=== PATIENT | female | born 1990 | race Caucasian/White ===

== ENCOUNTER 2018-10-27 11:05 | Inpatient (IN) | payer BC ==
[~2018-10-27] VITALS: Ht 152.4 cm; Wt 96.6 kg
[2018-10-27] MEDS ORDERED: LR 1,000 ML IV ONE (11:14)
[2018-10-27] MEDS ORDERED: OXYTOCIN/0.9 % SODIUM CHLORIDE 1,000 ML IV SCH (11:14)
[2018-10-27] MEDS ORDERED: NALBUPHINE HCL 10 MG/ML AMP IVP PRN (11:15)
[2018-10-27] MEDS ORDERED: TERBUTALINE SULFATE 1 MG/ML VIAL SUBCUT ONE (11:15)
[2018-10-27 11:44] LABS: BASOPHILS % (AUTO) 0.4 % (0.0-2.0); EOSINOPHILS # (AUTO) 0.1 K/uL (0.0-0.4); EOSINOPHILS % (AUTO) 1.2 % (0.0-4.0); HEMATOCRIT 36.7 % (36-48); HEMOGLOBIN 12.3 g/dL (12.0-16.0); LYMPHOCYTES # (AUTO) 1.6 K/uL (1.0-5.5); LYMPHOCYTES % (AUTO) 16.9 % (20.5-51.5); MEAN CORPUSCULAR HEMOGLOBIN 28 pg (27-31); MEAN CORPUSCULAR HGB CONC 34 % (32-36); MEAN CORPUSCULAR VOLUME 85 fL (79.0-98.0); MONOCYTES # (AUTO) 0.6 K/uL (0.0-1.0); MONOCYTES % (AUTO) 6.2 % (1.7-9.3); NEUTROPHILS # (AUTO) 7.1 K/uL (1.8-7.7); NEUTROPHILS % (AUTO) 75.3 % (40.0-70.0); PLATELET COUNT (AUTO) 194 K/uL (130-430); RED BLOOD CELL COUNT(AUTO) 4.34 MIL/uL (4.2-6.2); RED CELL DISTRIBUTION WIDTH 13.7 % (9.0-15.0); WHITE BLOOD COUNT (AUTO) 9.4 K/uL (4.8-10.8)
[2018-10-27 16:26] VITALS: BP_SYST 129
[2018-10-27] MEDS: LR 1,000 ML IV SCH (19:15)
[2018-10-27] MEDS ORDERED: FENT2mCg/mL-ROPIVA0.2%/NS EPID 150 ML EP SCH (20:00)
[2018-10-27] MEDS ORDERED: ROPIVACAINE HCL/PF 0.2% 100 ML ONE (20:00)
[2018-10-27] MEDS ORDERED: fentaNYL CITRATE/PF 100 MCG/2 ML AMP ONE (20:00)
[2018-10-28] MEDS: LR 1,000 ML IV SCH (00:20)
[2018-10-28] MEDS ORDERED: ROPIVACAINE HCL/PF 0.2% 100 ML ONE ×2 (02:06→10:29)
[2018-10-28] MEDS ORDERED: AMPICILLIN SODIUM 2 GM in NS 100 ML IV ONE (02:45)
[2018-10-28] MEDS ORDERED: CEFAZOLIN 2 GM IVPB PREMIX 50 ML IV ONE (02:45)
[2018-10-28] MEDS ORDERED: CEFAZOLIN 2 GM IVPB PREMIX 0 ML IV ONE (02:48)
[2018-10-28] MEDS ORDERED: AMPICILLIN SODIUM 2 GM VIAL ONE (02:54)
[2018-10-28] MEDS ORDERED: AMPICILLIN SODIUM 1 GM in NS 50 ML IV SCH (03:00)
[2018-10-28] MEDS ORDERED: CEFAZOLIN 1 GM IVPB PREMIX 50 ML IV SCH (03:00)
[2018-10-28] MEDS ORDERED: AMPICILLIN SODIUM 1 GM VIAL ONE (06:29)
[2018-10-28] MEDS ORDERED: ONDANSETRON HCL 4 MG/2 ML VIAL IVP PRN ×2 (06:30→09:45)
[2018-10-28] MEDS ORDERED: ONDANSETRON HCL 4 MG/2 ML VIAL ONE (07:01)
[2018-10-28] MEDS ORDERED: ACETAMINOPHEN 650 MG SUPP.RECT RC PRN (08:45)
[2018-10-28] MEDS ORDERED: NALOXONE HCL 0.4 MG/ML AMP (NARCAN) IVP PRN (09:45)
[2018-10-28] MEDS ORDERED: OXYTOCIN/0.9 % SODIUM CHLORIDE 1,000 ML IV ONE (13:43)
[2018-10-28] MEDS ORDERED: OXYTOCIN/0.9 % SODIUM CHLORIDE 1,000 ML IV SCH (13:43)
[2018-10-28] MEDS ORDERED: HYDROcodone/ACETAMIN 5-325 MG TAB (NORCO/ VICODIN) PO PRN (13:45)
[2018-10-28] MEDS ORDERED: RHO(D) IMMUNE GLOBULIN/MALTOSE 1500 UNITS/1.3 ML (WINHRO) IM PRN (13:45)
[2018-10-28] MEDS ORDERED: METHYLERGONOVINE MALEATE 0.2 MG TABLET PO PRN (13:45)
[2018-10-28] MEDS ORDERED: MEASLES,MUMPS&RUBELLA VACC/PF 12500 UNIT/0.5 ML VIAL SUBQ PRN (13:45)
[2018-10-28] MEDS ORDERED: SENNOSIDES/DOCUSATE SODIUM 1 TAB TABLET(SENOKOT-S) PO PRN (13:45)
[2018-10-28] MEDS ORDERED: HYDROCORTISONE 0.5%, 28.35 GM TOPICAL CREAM TP PRN (13:45)
[2018-10-28] MEDS ORDERED: OXYCODONE/ACETAMINOPHEN 5-325 TABLET PO PRN ×2 (13:45)
[2018-10-28] MEDS ORDERED: DIPH-TET-PERTUS Vaccine 0.5 ML VIAL (ADACEL) I.M. PRN (13:45)
[2018-10-28] MEDS ORDERED: LANOLIN 7 GM OINT. TP PRN (13:45)
[2018-10-28] MEDS ORDERED: WITCH HAZEL LEAF 1 MED.PAD MED.PAD TP PRN (13:45)
[2018-10-28] MEDS ORDERED: DERMOPLAST SPRAY TP PRN (13:45)
[2018-10-28] MEDS ORDERED: ANUSOL 1 EA SUPP.RECT (PREPARATION H) RC PRN (13:45)
[2018-10-28] MEDS: DOCUSATE SODIUM 100 MG CAPSULE PO PRN (17:34)
[2018-10-28] MEDS: IBUPROFEN 600 MG TABLET PO SCH (17:34)
[2018-10-28] MEDS ORDERED: TEMAZEPAM 15 MG CAPSULE PO PRN (21:00)
[2018-10-29] MEDS: IBUPROFEN 600 MG TABLET PO SCH ×4 (00:18→18:13)
[2018-10-29] MEDS: DOCUSATE SODIUM 100 MG CAPSULE PO PRN ×2 (00:19→06:22)
[2018-10-29 07:22] LABS: HEMATOCRIT 31.6 % (36-48); HEMOGLOBIN 10.4 g/dL (12.0-16.0); MEAN CORPUSCULAR HEMOGLOBIN 28 pg (27-31); MEAN CORPUSCULAR HGB CONC 33 % (32-36); MEAN CORPUSCULAR VOLUME 85 fL (79.0-98.0); PLATELET COUNT (AUTO) 168 K/uL (130-430); RED CELL DISTRIBUTION WIDTH 14.2 % (9.0-15.0)
[2018-10-29 07:41] LABS: WHITE BLOOD COUNT (AUTO) 20.3 K/uL (4.8-10.8)
[2018-10-29 10:14] LABS: BAND % (MANUAL) 9 % (0-6)
[2018-10-29 10:15] LABS: ATYPICAL LYMPHOCYTES % 0 % (0-0); BASOPHILS % (MANUAL) 0 % (0-2); EOSINOPHILS % (MANUAL) 0 % (0-7); LYMPHOCYTES % (MANUAL) 11 % (20-46); MONOCYTES % (MANUAL) 7 % (0-11)
[2018-10-30] MEDS: IBUPROFEN 600 MG TABLET PO SCH ×4 (00:05→17:32)
[2018-10-30] MEDS: DOCUSATE SODIUM 100 MG CAPSULE PO PRN ×2 (00:06→12:30)
[2018-10-30] MEDS ORDERED: LR 500 ML IV ONE (08:11)
[2018-10-30] MEDS ORDERED: FENT2mCg/mL-ROPIVA0.2%/NS EPID 100 ML EP SCH (08:15)
--- NOTE | 2018-10-30 13:43 | NUR ---
Dietitian Recommendations * Recommend continuing regular diet per LP, RD Please refer to Nutrition Assessment for details.
== END 2018-10-30 19:20 | disposition home or self-care (01) | DRG 806 ==
LOC: SPU 11:05
PROVIDERS: ADMIT Specialist; ATTEND Specialist
PROC: 10E0XZZ Delivery of Products of Conception, External Approach (ICD-10-PCS; principal; 2018-10-28)
PROC: 0KQM0ZZ Repair Perineum Muscle, Open Approach (ICD-10-PCS; 2018-10-28)
PROC: 3E0R3BZ Introduction of Anesthetic Agent into Spinal Canal, Percutaneous Approach (ICD-10-PCS; 2018-10-28)
PROC: 00HU33Z Insertion of Infusion Device into Spinal Canal, Percutaneous Approach (ICD-10-PCS; 2018-10-28)
DX: O99.89 Other specified diseases and conditions complicating pregnancy, childbirth and the puerperium (principal); R71.0 Precipitous drop in hematocrit; Z37.0 Single live birth; O77.0 Labor and delivery complicated by meconium in amniotic fluid; R00.1 Bradycardia, unspecified; O76 Abnormality in fetal heart rate and rhythm complicating labor and delivery; O70.1 Second degree perineal laceration during delivery; Z3A.37 37 weeks gestation of pregnancy
CPT/HCPCS: 36415; 81002-TC; 85007; 85025; 85027; 86592; 86886; 86900; 86901; 90715; J0290; J0690; J2300; J2405; J2590; J2795; J3010; J7120

== ENCOUNTER 2020-03-03 04:30 | Inpatient (IN) | payer BC, SELFPAY ==
[~2020-03-03] VITALS: Ht 172.7 cm; Wt 98.9 kg
[2020-03-03] MEDS ORDERED: OXYTOCIN/0.9 % SODIUM CHLORIDE 1,000 ML IV SCH (05:12)
[2020-03-03] MEDS ORDERED: NALOXONE HCL 0.4 MG/ML AMP (NARCAN) IVP PRN (05:15)
[2020-03-03] MEDS ORDERED: TERBUTALINE SULFATE 1 MG/ML VIAL SUBCUT ONE (05:15)
[2020-03-03] MEDS ORDERED: MORPHINE SULFATE 10 MG/ML VIAL IM PRN (05:15)
[2020-03-03 06:05] VITALS: BP_SYST 112
[2020-03-03 06:08] VITALS: BP_SYST 128
[2020-03-03] MEDS: LR 1,000 ML IV SCH ×2 (06:38→07:50)
[2020-03-03 07:49] LABS: BASOPHILS # (AUTO) 0.1 K/uL (0.0-0.2); BASOPHILS % (AUTO) 0.4 % (0.0-2.0); EOSINOPHILS # (AUTO) 0.2 K/uL (0.0-0.4); EOSINOPHILS % (AUTO) 1.6 % (0.0-4.0); HEMATOCRIT 37.1 % (36-48); HEMOGLOBIN 12.4 g/dL (12.0-16.0); LYMPHOCYTES % (AUTO) 13.2 % (20.5-51.5); MEAN CORPUSCULAR HEMOGLOBIN 28 pg (27-31); MEAN CORPUSCULAR HGB CONC 34 % (32-36); MEAN CORPUSCULAR VOLUME 84 fL (79.0-98.0); MONOCYTES # (AUTO) 0.8 K/uL (0.0-1.0); MONOCYTES % (AUTO) 5.5 % (1.7-9.3); NEUTROPHILS % (AUTO) 79.3 % (40.0-70.0); PLATELET COUNT (AUTO) 212 K/uL (130-430); RED BLOOD CELL COUNT(AUTO) 4.44 MIL/uL (4.2-6.2); RED CELL DISTRIBUTION WIDTH 13.6 % (9.0-15.0); WHITE BLOOD COUNT (AUTO) 15.2 K/uL (4.8-10.8)
[2020-03-03] MEDS ORDERED: LR 1,000 ML IV ONE (07:50)
[2020-03-03] MEDS ORDERED: fentaNYL CITRATE/PF 100 MCG/2 ML AMP ONE (08:16)
[2020-03-03] MEDS ORDERED: ROPIVACAINE HCL/PF 0.2% 200 ML ONE (08:17)
[2020-03-03] MEDS ORDERED: ePHEDrine sulfate 50 MG/ML VIAL IVP ONE ×2 (08:41→13:21)
[2020-03-03] MEDS ORDERED: OXYTOCIN/0.9 % SODIUM CHLORIDE 1,000 ML IV ONE (17:44)
[2020-03-03] MEDS ORDERED: WITCH HAZEL LEAF 1 MED.PAD MED.PAD TP PRN (17:45)
[2020-03-03] MEDS ORDERED: MEASLES,MUMPS&RUBELLA VACC/PF 12500 UNIT/0.5 ML VIAL SUBQ PRN (17:45)
[2020-03-03] MEDS ORDERED: RHO(D) IMMUNE GLOBULIN/MALTOSE 1500 UNITS/1.3 ML (WINHRO) IM PRN (17:45)
[2020-03-03] MEDS ORDERED: DERMOPLAST SPRAY TP PRN (17:45)
[2020-03-03] MEDS ORDERED: ANUSOL 1 EA SUPP.RECT (PREPARATION H) RC PRN (17:45)
[2020-03-03] MEDS ORDERED: METHYLERGONOVINE MALEATE 0.2 MG TABLET PO PRN (17:45)
[2020-03-03] MEDS ORDERED: DIPH-TET-PERTUS Vaccine 0.5 ML VIAL (ADACEL) I.M. PRN (17:45)
[2020-03-03] MEDS ORDERED: SENNOSIDES/DOCUSATE SODIUM 1 TAB TABLET(SENOKOT-S) PO PRN (17:45)
[2020-03-03] MEDS ORDERED: LANOLIN 7 GM OINT. TP PRN (17:45)
[2020-03-03] MEDS ORDERED: DOCUSATE SODIUM 100 MG CAPSULE PO PRN (17:45)
[2020-03-03] MEDS ORDERED: HYDROCORTISONE 0.5%, 28.35 GM TOPICAL CREAM TP PRN (17:45)
[2020-03-03] MEDS: IBUPROFEN 600 MG TABLET PO SCH (17:58)
[2020-03-03] MEDS ORDERED: TEMAZEPAM 15 MG CAPSULE PO PRN (21:00)
[2020-03-04] MEDS: IBUPROFEN 600 MG TABLET PO SCH ×3 (00:22→12:11)
[2020-03-04 07:13] LABS: BASOPHILS % (AUTO) 0.2 % (0.0-2.0); EOSINOPHILS # (AUTO) 0.2 K/uL (0.0-0.4); EOSINOPHILS % (AUTO) 1.5 % (0.0-4.0); HEMATOCRIT 28.6 % (36-48); HEMOGLOBIN 9.6 g/dL (12.0-16.0); LYMPHOCYTES # (AUTO) 2.5 K/uL (1.0-5.5); LYMPHOCYTES % (AUTO) 17.2 % (20.5-51.5); MEAN CORPUSCULAR HEMOGLOBIN 28 pg (27-31); MEAN CORPUSCULAR HGB CONC 34 % (32-36); MEAN CORPUSCULAR VOLUME 85 fL (79.0-98.0); MONOCYTES # (AUTO) 0.9 K/uL (0.0-1.0); MONOCYTES % (AUTO) 6.3 % (1.7-9.3); NEUTROPHILS # (AUTO) 10.7 K/uL (1.8-7.7); NEUTROPHILS % (AUTO) 74.8 % (40.0-70.0); PLATELET COUNT (AUTO) 182 K/uL (130-430); RED BLOOD CELL COUNT(AUTO) 3.38 MIL/uL (4.2-6.2); RED CELL DISTRIBUTION WIDTH 13.3 % (9.0-15.0); WHITE BLOOD COUNT (AUTO) 14.3 K/uL (4.8-10.8)
== END 2020-03-04 14:50 | disposition home or self-care (01) | DRG 806 ==
LOC: SPU 04:30
PROVIDERS: ADMIT Specialist; ATTEND Specialist
PROC: 10D07Z6 Extraction of Products of Conception, Vacuum, Via Natural or Artificial Opening (ICD-10-PCS; principal; 2020-03-03)
PROC: 3E0R3BZ Introduction of Anesthetic Agent into Spinal Canal, Percutaneous Approach (ICD-10-PCS; 2020-03-03)
PROC: 00HU33Z Insertion of Infusion Device into Spinal Canal, Percutaneous Approach (ICD-10-PCS; 2020-03-03)
DX: O76 Abnormality in fetal heart rate and rhythm complicating labor and delivery (principal); R71.0 Precipitous drop in hematocrit; Z37.0 Single live birth; O75.81 Maternal exhaustion complicating labor and delivery; O99.214 Obesity complicating childbirth; Z20.828 Contact with and (suspected) exposure to other viral communicable diseases; E66.01 Morbid (severe) obesity due to excess calories; Z3A.37 37 weeks gestation of pregnancy
CPT/HCPCS: 36415; 81002-TC; 85025; 86592; 86886; 86900; 86901; J2590; J3010

== ENCOUNTER 2021-11-04 19:05 | Observation (INO) | payer BC, OTHER ==
[~2021-11-04] VITALS: Ht 152.4 cm; Wt 97.5 kg
== END 2021-11-04 23:20 | disposition home or self-care (01) ==
LOC: SPU 19:05
PROVIDERS: ADMIT Specialist; ATTEND Specialist
DX: O42.92 Full-term premature rupture of membranes, unspecified as to length of time between rupture and onset of labor (principal); Z3A.37 37 weeks gestation of pregnancy
CPT/HCPCS: 76815; 81002; G0378

== ENCOUNTER 2021-11-13 19:42 | Observation (INO) | payer OTHER | END 2021-11-13 21:00 | disposition home or self-care (01) | LOC: SPU 19:42 | PROVIDERS: ADMIT Specialist; ATTEND Specialist | DX: O46.93 Antepartum hemorrhage, unspecified, third trimester (principal); O62.9 Abnormality of forces of labor, unspecified; Z3A.38 38 weeks gestation of pregnancy | CPT/HCPCS: 59025; 81002; G0378 ==

== ENCOUNTER 2021-11-14 09:04 | Inpatient (IN) | payer OTHER ==
[~2021-11-14] VITALS: Ht 152.4 cm; Wt 99.8 kg
[2021-11-14] MEDS ORDERED: NALBUPHINE HCL 10 MG/ML AMP IM PRN (09:45)
[2021-11-14] MEDS ORDERED: NALBUPHINE HCL 10 MG/ML AMP IVP PRN (09:45)
[2021-11-14] MEDS ORDERED: LR 1,000 ML IV ONE (09:45)
[2021-11-14] MEDS ORDERED: TERBUTALINE SULFATE 1 MG/ML VIAL SUBCUT ONE (09:45)
[2021-11-14] MEDS ORDERED: LR 1,000 ML IV SCH (09:45)
[2021-11-14] MEDS ORDERED: OXYTOCIN/0.9 % SODIUM CHLORIDE 1,000 ML IV SCH ×2 (09:45→15:45)
[2021-11-14 10:15] LABS: BASOPHILS % (AUTO) 0.4 % (0.0-2.0); EOSINOPHILS # (AUTO) 0.1 K/uL (0.0-0.4); EOSINOPHILS % (AUTO) 0.9 % (0.0-4.0); HEMATOCRIT 36.7 % (36-48); HEMOGLOBIN 12.6 g/dL (12.0-16.0); LYMPHOCYTES # (AUTO) 1.5 K/uL (1.0-5.5); LYMPHOCYTES % (AUTO) 15.3 % (20.5-51.5); MEAN CORPUSCULAR HEMOGLOBIN 29 pg (27-31); MEAN CORPUSCULAR HGB CONC 34 % (32-36); MEAN CORPUSCULAR VOLUME 83 fL (79.0-98.0); MONOCYTES # (AUTO) 0.6 K/uL (0.0-1.0); MONOCYTES % (AUTO) 6.5 % (1.7-9.3); NEUTROPHILS # (AUTO) 7.5 K/uL (1.8-7.7); NEUTROPHILS % (AUTO) 76.9 % (40.0-70.0); PLATELET COUNT (AUTO) 172 K/uL (130-430); RED BLOOD CELL COUNT(AUTO) 4.42 MIL/uL (4.2-6.2); RED CELL DISTRIBUTION WIDTH 13.8 % (9.0-15.0); WHITE BLOOD COUNT (AUTO) 9.8 K/uL (4.8-10.8)
[2021-11-14] MEDS ORDERED: NALOXONE HCL 0.4 MG/ML AMP (NARCAN) ONE (10:39)
[2021-11-14] MEDS ORDERED: LIGHT MINERAL OIL 10 ML VIAL MC ONE (10:39)
[2021-11-14] MEDS ORDERED: LIDOCAINE PF 1% 30ML(POUR BTL) INJ ONE (10:39)
[2021-11-14] MEDS ORDERED: LR 500 ML IV ONE (10:45)
[2021-11-14] MEDS ORDERED: FENT2mCg/mL-ROPIVA0.2%/NS EPID 200 ML EP SCH (10:45)
[2021-11-14] MEDS ORDERED: ePHEDrine sulfate 50 MG/ML VIAL IVP PRN (10:45)
[2021-11-14] MEDS ORDERED: ROPIVACAINE HCL/PF 0.2% 200 ML ONE (11:02)
[2021-11-14] MEDS ORDERED: fentaNYL CITRATE/PF 100 MCG/2 ML AMP ONE (11:02)
[2021-11-14 11:29] VITALS: BP_SYST 120
[2021-11-14] MEDS ORDERED: ONDANSETRON HCL 4 MG/2 ML VIAL IVP PRN (12:15)
[2021-11-14] MEDS ORDERED: ONDANSETRON HCL 4 MG/2 ML VIAL ONE (12:34)
[2021-11-14] MEDS ORDERED: DERMOPLAST SPRAY TP PRN (15:45)
[2021-11-14] MEDS: IBUPROFEN 600 MG TABLET PO SCH ×2 (18:06→23:57)
[2021-11-15] MEDS: IBUPROFEN 600 MG TABLET PO SCH ×3 (05:52→18:06)
[2021-11-15 06:29] LABS: BASOPHILS % (AUTO) 0.3 % (0.0-2.0); EOSINOPHILS # (AUTO) 0.1 K/uL (0.0-0.4); EOSINOPHILS % (AUTO) 1.1 % (0.0-4.0); HEMATOCRIT 32.7 % (36-48); HEMOGLOBIN 11.2 g/dL (12.0-16.0); LYMPHOCYTES # (AUTO) 2.5 K/uL (1.0-5.5); LYMPHOCYTES % (AUTO) 20.2 % (20.5-51.5); MEAN CORPUSCULAR HEMOGLOBIN 29 pg (27-31); MEAN CORPUSCULAR HGB CONC 34 % (32-36); MEAN CORPUSCULAR VOLUME 84 fL (79.0-98.0); MONOCYTES # (AUTO) 0.9 K/uL (0.0-1.0); MONOCYTES % (AUTO) 7.6 % (1.7-9.3); NEUTROPHILS # (AUTO) 8.6 K/uL (1.8-7.7); NEUTROPHILS % (AUTO) 70.8 % (40.0-70.0); PLATELET COUNT (AUTO) 159 K/uL (130-430); RED CELL DISTRIBUTION WIDTH 13.6 % (9.0-15.0); WHITE BLOOD COUNT (AUTO) 12.2 K/uL (4.8-10.8)
[2021-11-16] MEDS: IBUPROFEN 600 MG TABLET PO SCH ×2 (00:25→06:08)
== END 2021-11-16 10:45 | disposition home or self-care (01) | DRG 807 ==
LOC: OBSVTOIN 09:04 → SPU 09:04
PROVIDERS: ADMIT Specialist; ATTEND Specialist
PROC: 10E0XZZ Delivery of Products of Conception, External Approach (ICD-10-PCS; principal; 2021-11-14)
PROC: 3E0R3BZ Introduction of Anesthetic Agent into Spinal Canal, Percutaneous Approach (ICD-10-PCS; 2021-11-14)
PROC: 00HU33Z Insertion of Infusion Device into Spinal Canal, Percutaneous Approach (ICD-10-PCS; 2021-11-14)
DX: O80 Encounter for full-term uncomplicated delivery (principal); Z37.0 Single live birth; Z3A.38 38 weeks gestation of pregnancy; Z20.822 Contact with and (suspected) exposure to COVID-19
CPT/HCPCS: 36415; 81002; 85025; 86592; 86886; 86900; 86901; 94760; J2001; J2310; J2405; J2590; J3010